=== PATIENT | male | born 1955 | race African-American/Black ===

== ENCOUNTER 2022-10-08 20:26 | Inpatient (IN) ==
[2022-10-08] MEDS ORDERED: ONDANSETRON 4 MG/2 ML VIAL IV PRN (22:33)
[2022-10-08] MEDS ORDERED: ACETAMINOPHEN 325 MG TABLET PO PRN (22:33)
[2022-10-08] MEDS ORDERED: MORPHINE 2 MG/1 ML SYRINGE IV PRN (22:38)
[2022-10-08] MEDS: ENOXAPARIN 120 MG/0.8 ML SYRINGE SUBCUT SCH (23:21)
[2022-10-08] MEDS: NITROGLYCERIN 2% OINT 1 INCH/GM PACK TOP SCH (23:21)
[2022-10-08 23:32] LABS: Basophils % 0.4 % (0.0-0.8); Eosinophils # 0.1 10*3/uL (0.0-0.87); Eosinophils % 0.8 % (0.00-10.9); Hematocrit 47.1 VOL% (42.0-52.0); Hemoglobin 14.5 GM/DL (14.0-18.0); Immature Granulocytes % 0.3 %; Immature Granulocytes Absolute 0.02 #; Lymphocytes % 13.7 % (21.2-54.2); Mean Corpuscular HGB Conc 30.8 GM/DL (32-36); Mean Corpuscular Volume 91.6 FL (87-102); Mean Platelet Volume 9.7 FL (9.6-12.0); Monocytes # 0.2 10*3/uL (0.11-0.8); Monocytes % 2.2 % (1.7-12.7); Neutrophils % 82.6 % (38.7-73.9); Platelet Count 329 T/CUMM (130-400); Red Blood Count 5.14 MC/CUMM (3.8-5.5); Red Cell Distribution Width 15.4 % (9.3-17.3); White Blood Count 7.3 T/CUMM (4-12)
[2022-10-08 23:59] LABS: Albumin 3.3 G/DL (3.4-5.0); Bilirubin,Total 0.7 MG/DL (0.20-1.00); Calcium 9.2 MG/DL (8.5-10.1); Osmolality,Calculated 280.8 MOS/KG (273-304); Potassium 4.9 MMOL/L (3.5-5.1); Total Protein 8.7 G/DL (6.4-8.2)
[2022-10-09] MEDS: ALBUTEROL/IPRATROPIUM 3 ML NEB RESP TX SCH ×4 (00:37→19:26)
[2022-10-09] MEDS ORDERED: LEVALBUTEROL 1.25 MG/3 ML NEB RESP TX SCH (01:00)
[2022-10-09] MEDS: NITROGLYCERIN 2% OINT 1 INCH/GM PACK TOP SCH ×4 (05:28→22:20)
[2022-10-09 06:52] LABS: Basophils % 0.3 % (0.0-0.8); Hematocrit 43.9 VOL% (42.0-52.0); Hemoglobin 13.8 GM/DL (14.0-18.0); Immature Granulocytes % 0.5 %; Immature Granulocytes Absolute 0.04 #; Lymphocytes % 12.4 % (21.2-54.2); Mean Corpuscular HGB Conc 31.4 GM/DL (32-36); Mean Corpuscular Volume 91.3 FL (87-102); Mean Platelet Volume 9.4 FL (9.6-12.0); Monocytes # 0.1 10*3/uL (0.11-0.8); Monocytes % 1.8 % (1.7-12.7); Platelet Count 351 T/CUMM (130-400); Red Blood Count 4.81 MC/CUMM (3.8-5.5); Red Cell Distribution Width 15.4 % (9.3-17.3); White Blood Count 7.7 T/CUMM (4-12)
[2022-10-09 07:17] LABS: Bilirubin,Total 0.5 MG/DL (0.20-1.00); Calcium 8.7 MG/DL (8.5-10.1); Osmolality,Calculated 289.4 MOS/KG (273-304); Potassium 4.4 MMOL/L (3.5-5.1); Total Protein 8.3 G/DL (6.4-8.2)
[2022-10-09] MEDS: SACUBITRIL/VALSARTAN 49-51 MG TABLET PO SCH ×2 (08:44→21:39)
[2022-10-09] MEDS: ASPIRIN EC 325 MG TABLET PO SCH (08:44)
[2022-10-09] MEDS: ISOSORBIDE MONONITRATE 60 MG TABLET PO SCH (08:44)
[2022-10-09] MEDS: carvediloL 25 MG TABLET PO SCH ×2 (08:45→21:37)
[2022-10-09] MEDS: INSULIN REGULAR 100 UNIT/ML SUBCUT SCH ×4 (08:47→22:29)
[2022-10-09] MEDS: TORSEMIDE 20 MG TABLET PO SCH (08:47)
[2022-10-09] MEDS: GABAPENTIN 100 MG CAPSULE PO SCH ×3 (08:47→21:37)
[2022-10-09] MEDS: PANTOPRAZOLE 40 MG TABLET PO SCH (08:47)
[2022-10-09] MEDS ORDERED: PHENYTOIN ER 100 MG CAPSULE PO SCH (09:00)
[2022-10-09] MEDS: levETIRAcetam 500 MG TABLET PO SCH ×2 (10:00→21:38)
[2022-10-09] MEDS: PHENYTOIN ER 100 MG CAPSULE PO SCH ×2 (12:36→21:39)
[2022-10-09] MEDS: ROSUVASTATIN 20 MG TABLET PO SCH (21:37)
[2022-10-09] MEDS: ENOXAPARIN 120 MG/0.8 ML SYRINGE SUBCUT SCH (22:20)
[2022-10-10] MEDS: ALBUTEROL/IPRATROPIUM 3 ML NEB RESP TX SCH ×4 (00:24→19:15)
[2022-10-10] MEDS: NITROGLYCERIN 2% OINT 1 INCH/GM PACK TOP SCH ×3 (04:29→17:59)
[2022-10-10 05:51] LABS: Basophils % 0.4 % (0.0-0.8); Eosinophils # 0.2 10*3/uL (0.0-0.87); Eosinophils % 2.5 % (0.00-10.9); Hematocrit 40.3 VOL% (42.0-52.0); Hemoglobin 12.2 GM/DL (14.0-18.0); Immature Granulocytes % 0.2 %; Immature Granulocytes Absolute 0.02 #; Lymphocytes # 2.9 10*3/uL (1.4-4.0); Lymphocytes % 32.4 % (21.2-54.2); Mean Corpuscular HGB Conc 30.3 GM/DL (32-36); Mean Corpuscular Volume 92.9 FL (87-102); Mean Platelet Volume 9.9 FL (9.6-12.0); Monocytes # 0.8 10*3/uL (0.11-0.8); Monocytes % 8.4 % (1.7-12.7); Neutrophils % 56.1 % (38.7-73.9); Platelet Count 325 T/CUMM (130-400); Red Blood Count 4.34 MC/CUMM (3.8-5.5); Red Cell Distribution Width 15.6 % (9.3-17.3); White Blood Count 8.9 T/CUMM (4-12)
[2022-10-10 06:19] LABS: Alanine Aminotransferase 14 U/L (16-61); Albumin 2.8 G/DL (3.4-5.0); Alkaline Phosphatase 71 U/L (45-117); Aspartate Amino Transferase 14 U/L (0-37); Bilirubin,Total < 0.39 MG/DL (0.20-1.00); Blood Urea Nitrogen 55 MG/DL (7-18); Calcium 8.4 MG/DL (8.5-10.1); Carbon Dioxide 29 MMOL/L (21-32); Chloride 104 MMOL/L (98-107); Cholesterol 160 MG/DL (50-200); Glucose 125 MG/DL (74-106); HDL Cholesterol 45 MG/DL (40-60); Osmolality,Calculated 292.5 MOS/KG (273-304); Potassium 4.2 MMOL/L (3.5-5.1); Risk Ratio 3.56; Sodium 139 MMOL/L (136-145); Total Protein 7.3 G/DL (6.4-8.2); Triglycerides 81 MG/DL (2-150); VLDL Cholesterol 16.2 MG/DL
[2022-10-10] MEDS: INSULIN REGULAR 100 UNIT/ML SUBCUT SCH ×4 (08:28→21:19)
[2022-10-10] MEDS: ASPIRIN EC 325 MG TABLET PO SCH (09:03)
[2022-10-10] MEDS: SACUBITRIL/VALSARTAN 49-51 MG TABLET PO SCH ×2 (09:03→21:13)
[2022-10-10] MEDS: GABAPENTIN 100 MG CAPSULE PO SCH ×3 (09:04→21:13)
[2022-10-10] MEDS: PANTOPRAZOLE 40 MG TABLET PO SCH (09:04)
[2022-10-10] MEDS: PHENYTOIN ER 100 MG CAPSULE PO SCH ×3 (09:04→21:12)
[2022-10-10] MEDS: levETIRAcetam 500 MG TABLET PO SCH ×2 (09:04→21:13)
[2022-10-10] MEDS: carvediloL 25 MG TABLET PO SCH ×2 (09:05→21:13)
[2022-10-10] MEDS: TORSEMIDE 20 MG TABLET PO SCH (09:05)
[2022-10-10] MEDS: ISOSORBIDE MONONITRATE 60 MG TABLET PO SCH (09:05)
[2022-10-10] MEDS: ENOXAPARIN 40 MG/0.4 ML SYRINGE SUBCUT SCH (11:33)
[2022-10-10 19:54] LABS: Bilirubin,Urine Negative (Negative); Blood, Urine Negative (Negative); Glucose,Urine (UA) Negative (Negative); Ketones,Urine Negative (Negative); Nitrite,Urine Negative (Negative); Protein,Urine Negative (Negative); Urine Appearance Clear (Clear); Urine Color Yellow (Yellow); Urine Specific Gravity 1.015 (1.001-1.035); Urine Urobilinogen 0.2 eU/dL (<2.0); Urine pH 5.5 (4.5-8.0)
[2022-10-10 19:56] LABS: Mucus,Urine Occasional /LPF (Occasional); RBC,Urine 1 /HPF (0-4)
[2022-10-10] MEDS: ROSUVASTATIN 20 MG TABLET PO SCH (21:13)
[2022-10-11] MEDS: NITROGLYCERIN 2% OINT 1 INCH/GM PACK TOP SCH ×5 (00:06→23:30)
[2022-10-11] MEDS: ALBUTEROL/IPRATROPIUM 3 ML NEB RESP TX SCH ×4 (00:10→18:35)
[2022-10-11 05:28] LABS: Calcium 8.4 MG/DL (8.5-10.1); Osmolality,Calculated 290.4 MOS/KG (273-304); Potassium 4.5 MMOL/L (3.5-5.1)
[2022-10-11] MEDS: INSULIN REGULAR 100 UNIT/ML SUBCUT SCH ×4 (08:14→21:37)
[2022-10-11] MEDS: levETIRAcetam 500 MG TABLET PO SCH ×2 (09:25→21:28)
[2022-10-11] MEDS: ASPIRIN EC 325 MG TABLET PO SCH (09:25)
[2022-10-11] MEDS: GABAPENTIN 100 MG CAPSULE PO SCH ×3 (09:26→21:28)
[2022-10-11] MEDS: SACUBITRIL/VALSARTAN 49-51 MG TABLET PO SCH ×2 (09:26→21:28)
[2022-10-11] MEDS: carvediloL 25 MG TABLET PO SCH ×2 (09:26→21:28)
[2022-10-11] MEDS: PANTOPRAZOLE 40 MG TABLET PO SCH (09:26)
[2022-10-11] MEDS: ISOSORBIDE MONONITRATE 60 MG TABLET PO SCH (09:26)
[2022-10-11] MEDS: PHENYTOIN ER 100 MG CAPSULE PO SCH ×3 (09:26→21:28)
[2022-10-11] MEDS: ENOXAPARIN 40 MG/0.4 ML SYRINGE SUBCUT SCH (12:23)
[2022-10-11] MEDS: FUROSEMIDE 80 MG TABLET PO SCH (16:38)
[2022-10-11] MEDS: ROSUVASTATIN 20 MG TABLET PO SCH (21:27)
[2022-10-12] MEDS: ALBUTEROL/IPRATROPIUM 3 ML NEB RESP TX SCH ×3 (00:07→13:36)
[2022-10-12 05:08] LABS: Osmolality,Calculated 289.3 MOS/KG (273-304)
[2022-10-12] MEDS: NITROGLYCERIN 2% OINT 1 INCH/GM PACK TOP SCH ×3 (05:44→17:17)
[2022-10-12] MEDS: INSULIN REGULAR 100 UNIT/ML SUBCUT SCH ×3 (09:12→15:59)
[2022-10-12] MEDS: FUROSEMIDE 80 MG TABLET PO SCH ×2 (09:18→16:00)
[2022-10-12] MEDS: PHENYTOIN ER 100 MG CAPSULE PO SCH ×2 (09:18→14:11)
[2022-10-12] MEDS: SACUBITRIL/VALSARTAN 49-51 MG TABLET PO SCH (09:18)
[2022-10-12] MEDS: ASPIRIN EC 325 MG TABLET PO SCH (09:18)
[2022-10-12] MEDS: GABAPENTIN 100 MG CAPSULE PO SCH ×2 (09:18→15:58)
[2022-10-12] MEDS: ISOSORBIDE MONONITRATE 60 MG TABLET PO SCH (09:19)
[2022-10-12] MEDS: PANTOPRAZOLE 40 MG TABLET PO SCH (09:19)
[2022-10-12] MEDS: carvediloL 25 MG TABLET PO SCH (09:19)
[2022-10-12] MEDS: levETIRAcetam 500 MG TABLET PO SCH (09:19)
[2022-10-12] MEDS: ENOXAPARIN 40 MG/0.4 ML SYRINGE SUBCUT SCH (14:12)
[2022-10-12 16:53] VITALS: BP 130/82
== END 2022-10-12 18:50 | disposition home or self-care (01) | DRG 313 ==
LOC: SUATTDRO 22:08 → N.TELEN 22:08
PROVIDERS: ADMIT Internal Medicine; ATTEND Internal Medicine Geriatric Medicine